=== PATIENT | female | born 1980 | race American Indian/Alaskan Native ===

== ENCOUNTER 2017-09-15 11:06 | Day surgery (SDC) | payer OTHER ==
--- NOTE | 2017-09-14 18:00 | History and Physical Report ---
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 Operations: Tubal Ligation(Essure) Abnormal PAP: negative Infection History HIV Risk Eval: no Hx of STD: None Active Medications (reviewed today): IBUPROFEN 800 MG ORAL TABLET (IBUPROFEN) 1 po TID (PRN) OXYCODONE-ACETAMINOPHEN 5-325 MG ORAL TABLET (OXYCODONE-ACETAMINOPHEN) 1-2po q6h AMLODIPINE BESYLATE TABLET (AMLODIPINE BESYLATE TABS) Current Allergies (reviewed today): No known allergies Past Medical History: Reviewed history from 06/19/2014 and no changes required: Hypertension Past Surgical History: Reviewed history from 06/19/2014 and no changes required: Tubal Ligation(Essure) Family History Summary: Reviewed history Last on 07/04/2015 and no changes required:09/14/2017 MGM - Has Family History Breast Cancer - GreatGM - Entered On: 02/07/2017 Other family member - Has No Family History of Biliary Tract Cancer - Entered On : 02/07/2017 Other family member - Has No Family History of Brain Cancer - Entered On: 2016 Other family member - Has No Family History of Colon Cancer - Entered On: 2016 Other family member - Has No Family History of DVT/PE on OCP - Entered On: 2016 Other family member - Has No Family History of Kidney/Urinary Tract Cancer - Entered On: 02/07/2017 Other family member - Has No Family History of Ovarvian Cancer - Entered On: 02/07 Other family member - Has No Family History of Pancreatic Cancer - Entered On: Other family member - Has No Family History of Stomach Cancer - Entered On: 2016 Other family member - Has No Family History of Small Bowel Cancer - Entered On: 02/07/2017 Other family member - Has No Family History of Uterine Cancer - Entered On: 2016 General Comments - FH: Family History Breast Cancer MGGM No Family History of Colon Cancer No Family History of Ovarvian Cancer No Family History of DVT/PE on OCP Social History: Reviewed history from 12/31/2016 and no changes required: Patient is Smoking History: Patient has never smoked. Risk Factors: PAP Smear History: Date of Last PAP Smear: 12/31/2016 Previous Tobacco Use: Signed On - 07/08/2017 Smoked Tobacco Use: Never smoker Smokeless Tobacco Use: Never Drug use: no HIV high-risk behavior: no Previous Alcohol Use: Signed On - 07/08/2017 Alcohol use: no Exercise: yes Times per week: 2 Seatbelt use: 100 % PAP Smear History: Date of Last PAP Smear: 12/31/2016 Review of Systems General Denies fever, chills, sweats, anorexia, fatigue, weakness, malaise, weight loss and sleep disorder. : menorrhagia Denies vaginal discharge, incontinence, dysuria, hematuria, urinary frequency, amenorrhea, , abnormal vaginal bleeding, pelvic pain, genital sores, decreased libido, painful periods, painful sex, urinary urgency, hot flashes, vaginal dryness, vaginal itching and vaginal odor. CV Denies chest pains, palpitations, syncope, dyspnea on exertion, orthopnea, PND and peripheral edema. Resp Denies cough, dyspnea at rest, excessive sputum, hemoptysis, wheezing and pleurisy. GI Denies nausea, vomiting, diarrhea, constipation, change in bowel habits, abdominal pain, melena, hematochezia, jaundice, gas/bloating, indigestion/ heartburn, dysphagia and odynophagia. Endo Denies cold intolerance, heat intolerance, polydipsia, polyphagia, polyuria and unusual weight change. Breast Denies left breast lump, right breast lump, nipple discharge, bloody discharge from nipple, breast pain, abnormal mammogram and breast enlargement. MS Denies back pain, joint pain, joint swelling, muscle cramps, muscle weakness, stiffness, arthritis, sciatica, restless legs, leg pain at night and leg pain with exertion. Derm Denies rash, itching, dryness and suspicious lesions. Neuro Denies paralysis, paresthesias, headache, seizures, tremors, vertigo, transient blindness, frequent falls, frequent headaches and difficulty walking. Psych Denies depression, anxiety, irritability and mood swings. Eyes Denies blurring, diplopia, irritation, discharge, vision loss, eye pain and photophobia. ENT Denies earache, ear discharge, tinnitus, decreased hearing, nasal congestion, nosebleeds, sore throat and hoarseness. Allergy Denies urticaria, allergic rash, hay fever and recurrent infections. Heme Denies abnormal bruising, bleeding and enlarged lymph nodes. Physical Exam Appearance: well developed, well nourished, no acute distress Other Exams Lungs: no rales, rhonchi, or wheezes Heart: S1, S2, no murmur, rub, or gallop Abdomen: normal bowel sounds, soft, nontender, no HSM Skin: no ulcers, xanthomas Genitourinary Exam Vulva: normal, no lesions or discharge Urethral meatus: normal size and location, no lesions or discharge Urethra: no discharge Bladder: no cystocele Vagina: normal appearance, no discharge, lesions. No evidence of cystocele or rectocele. Cervix: normal appearance, no lesions, no discharge Uterus: normal position, midline, mobile Adnexa: no masses or tenderness Impression & Recommendations: Problem # 1: Excessive and frequent menstruation with regular cycle (ICD-626.2 ) ([id number]-Z78.0) Diagnosis explained to patient . Questions answered. Discussed with patient various medical and surgical therapies common for treatment: Hormonal/medical therapy,endometrial ablation or hysterectomy. She desires to proceed with endometrial ablation Consent reviewed and signed . Possible laparoscopy or laparotomy explained to patient. The risks and alternatives for this surgery were reviewed with the patient. She was informed of possible bleeding, infection, injury to bowel, bladder, ureters or other adjacent organs. The patient was instructed/informed the following: The normal length of hospital stay for this procedure. Nothing to eat or drink after midnight the evening prior to surgery. Clear liquids the day before surgery. Fleets enema the day prior to surgery. Pre-op instruction sheets given. Wound care instructions given. Infection precautions reviewed, patient to call for any signs or symptoms of infection. The usual discomforts associated with this procedure were detailed. Proper use of pain medicines was reviewed. Patient was given ample opportunity to have all her questions answered before signing informed consent. Medications Added to Medication List This Visit: 1) Ibuprofen 800 Mg Oral Tablet (Ibuprofen) .... 1 po tid (prn) 2) Oxycodone-acetaminophen 5-325 Mg Oral Tablet (Oxycodone-acetaminophen) .... 1-2po q6h Prescriptions: IBUPROFEN 800 MG ORAL TABLET (IBUPROFEN) 1 po TID (PRN) #30 x 0 Entered and Authorized by: Gladis Garcia MD Method used: Print then Give to Patient RxID: [id number] OXYCODONE-ACETAMINOPHEN 5-325 MG ORAL TABLET (OXYCODONE-ACETAMINOPHEN) 1-2po q6h #15 x 0 Entered and Authorized by: Gladis Garcia MD Method used: Print then Give to Patient RxID: [id number] Medications and Allergies Allergies Allergy/AdvReac Type Severity Reaction Status Date / Time No Known Allergies Allergy Unverified 09/10/17 15:34 Home Medications Medication Instructions Recorded Confirmed Last Taken Type amLODIPine [Norvasc] 5 mg PO DAILY 09/10/17 09/10/17 Unknown History Active Meds: Active Medications Cefazolin Sodium (Ancef/Sterile Water 2 Gm/20 Ml) 2 gm in 20 mls @ 80 mls/hr IV PREOP NR; Protocol Assessment and Plan - Patient Problems (1) Menorrhagia Status: Acute Qualifiers: Menorrahagia type: with regular cycle Qualified Code(s): N92.0 - Excessive and frequent menstruation with regular cycle
[~2017-09-15 11:06] MED LIST: ANCEF/STERILE WATER 2 GM/20 ML 2 GM/20 ML SYRINGE IV NR
[2017-09-15] MEDS ORDERED: DILAUDID IV PRN (11:58)
[2017-09-15] MEDS ORDERED: ZOFRAN IV PRN (11:58)
--- NOTE | 2017-09-15 11:58 | Anesthesia Day of Surgery ---
Anesthesia Day of Surgery - Day of Surgery Patient Examined: Yes Patient H&P Reviewed: Yes Patient is NPO: Yes
--- NOTE | 2017-09-15 11:58 | Anesthesia Consultation ---
Anesthesia Consult and Med Hx Date of service: 09/15/17 - Airway Anesthetic Teeth Evaluation: Good ROM Head & Neck: Adequate Mental/Hyoid Distance: Adequate Mallampati Class: Class II Intubation Access Assessment: Probably Good - Pulmonary Exam CTA: Yes - Cardiac Exam Cardiac Exam: RRR - Pre-Operative Health Status ASA Pre-Surgery Classification: ASA2 Proposed Anesthetic Plan: General - Cardiovascular System Hx Hypertension: Yes (x 2 yrs) - Central Nervous System Hx Psychiatric Problems: No - Other Systems Hx Alcohol Use: Yes (occas) Hx Cancer: No
[2017-09-15] MEDS ORDERED: VERSED IV NR (12:00)
[2017-09-15] MEDS ORDERED: LACTATED RINGERS 1,000 ML IV SCH (12:00)
[2017-09-15 12:19] LABS: Hemoglobin 11.5 gm/dl (10.1-14.3)
[2017-09-15] MEDS ORDERED: DIPRIVAN 10 MG/ML IV ONE (15:10)
[2017-09-15] MEDS ORDERED: SUBLIMAZE ONE (15:11)
[2017-09-15] MEDS ORDERED: NACL 0.9% IR ONE (16:00)
[2017-09-15] MEDS ORDERED: XYLOCAINE MPF 2% ONE (16:11)
[2017-09-15] MEDS ORDERED: NEO SYNEPHRINE/NS Syringe(OR USE) IV ONE (16:11)
--- NOTE | 2017-09-15 16:55 | Short Stay Summary ---
Short Stay Documentation Date of service: 09/15/17 Narrative H&P: See H&P - Allergies and Medications Current Medications: Allergies No Known Allergies Allergy (Unverified 09/10/17 15:34) Home Medications Medication Instructions Recorded Confirmed Last Taken Type amLODIPine [Norvasc] 5 mg PO DAILY 09/10/17 09/15/17 09/15/17 History Active Medications Hydromorphone HCl (Dilaudid) 0.5 mg IV Q10MIN PRN PRN Reason: Pain , Severe (7-10) Stop: 09/15/17 23:59 Cefazolin Sodium (Ancef/Sterile Water 2 Gm/20 Ml) 2 gm in 20 mls @ 80 mls/hr IV PREOP NR; Protocol Stop: 09/15/17 23:59 Lactated Ringer's (Lactated Ringers) 1,000 mls @ 100 mls/hr IV DIRECT TOMMIE Last Admin: 09/15/17 12:08 Dose: 100 mls/hr Midazolam HCl (Versed) 2 mg IV PREOP NR Stop: 09/15/17 23:59 Last Admin: 09/15/17 15:28 Dose: 2 mg Ondansetron HCl (Zofran) 4 mg IV ONCE PRN PRN Reason: Nausea And Vomiting - Brief post op/procedure progress note Date of procedure: 09/15/17 Procedure: The operative note - Disposition Condition at discharge: Good Disposition: DC-01 TO HOME OR SELFCARE - Discharge Diagnoses (1) Menorrhagia Status: Resolved Qualifiers: Menorrahagia type: with regular cycle Qualified Code(s): N92.0 - Excessive and frequent menstruation with regular cycle Short Stay Discharge Plan Activity: other (no sex) Weight Bearing Status: Full Weight Bearing Diet: regular Special Instructions: no heavy lifting (no lifting greater than 25 pounds) Follow up with: DANA ROD MD [Primary Care Provider] - 7 Days SHAWNA PRUITT MD [Staff Physician] - (As scheduled)
[2017-09-15] MEDS ORDERED: ZOFRAN ONE (17:00)
--- NOTE | 2017-09-15 17:00 | Operative Report ---
Operative Report Operative Report: Date: 09/15/2017 Preoperative diagnosis: 1. Menorrhagia Postoperative diagnosis: 1. Menorrhagia 2. Thickened endometrium Procedure: 1. Hysteroscopy 2. Cervical dilation with uterine curettage 3. Endometrial ablation using NovaSure device Surgeon: Gladis Garcia MD Assembler Dielectric Heater: [] Anesthesiologist: [] Anesthesia: Gen. EBL: Minimal Findings: Uterine cavity length: 6 cm Uterine cavity width: 4.6 cm Ablation wattage: 152 W Duration: 84 seconds Distention medium: Normal Saline Fluid deficit: 65 mL as noted by the fluid management system Procedure: After risks, benefits, complications, consequences and alternatives for this procedure were explained, and patient voiced her understanding and her desire to proceed, she is taken to the OR and placed in the supine position. General anesthesia was induced. She was placed in the dorsolithotomy position. Exam under anesthesia was unremarkable. She was then prepped and draped in usual sterile fashion. Timeout was performed. The bladder was drained of approximately 5 mL of clear yellow urine using a red rubber catheter. A operative speculum was introduced was introduced into the vagina. The anterior lip of the cervix was grasped with single-tooth tenaculum and the uterus was sounded to 10 cm. The cervix was progressively dilated to allow the operative hysteroscope. Uterine curettage was then performed. Then the uterine cavity length was determined. The NovaSure device was then set to 6 cm. The array was deployed to ensure adequate release. The device was introduced into the uterus and the array was released.. Uterine cavity width was determined to be 4.6 cm. Uterine integrity was confirmed. Ablation was performed. The procedure was completed at 84 seconds. The device was removed. The hysteroscope was reintroduced. No obvious evidence of perforation was noted.Ablation of all surfaces was noted. The procedure was ended. The speculum and the tenaculum were removed. Hemostasis was noted. The Britt catheter was removed. No bleeding from the tenaculum site was noted. Patient tolerated procedure well and taken to recovery room in stable condition
[2017-09-15] MEDS ORDERED: TORADOL ONE (17:06)
[2017-09-15] MEDS ORDERED: TORADOL IV ONE (17:20)
[2017-09-15 20:37] VITALS: BP 154/88
== END 2017-09-15 18:00 | disposition home or self-care (01) ==
LOC: OR 11:06
PROVIDERS: ATTEND Obstetrics & Gynecology
DX: N92.0 Excessive and frequent menstruation with regular cycle (principal); N85.8 Other specified noninflammatory disorders of uterus; I10 Essential (primary) hypertension
CPT/HCPCS: 36415; 58563; 85014; 85018; 86850; 86900; 86901; 88305; A4217; J0690; J1170; J1885; J2250; J2370; J2405; J2704; J3010; J7120